=== PATIENT | female | born 1980 | race Caucasian/White ===

== ENCOUNTER 2016-03-29 13:13 | Inpatient (IN) | payer BC ==
[~2016-03-29] VITALS: Ht 166.4 cm; Wt 73.5 kg
[2016-03-29] VITALS (8 sets, daily range): BP systolic 99–127; RESP 20; TEMP 98.3; Ht 166.4 cm; Wt 73.5 kg
[2016-03-29] MEDS ORDERED: LACT RINGERS 1,000 ML IV SCH (13:50)
[2016-03-29] MEDS ORDERED: ONDANSETRON 4 MG VIAL IV PRN (13:50)
[2016-03-29] MEDS ORDERED: ACETAMINOPHEN 325 MG TAB PO PRN (13:50)
[2016-03-29] MEDS ORDERED: FAMOTIDINE 20 MG TAB PO PRN (13:50)
[2016-03-29] MEDS ORDERED: METOCLOPRAMIDE 10 MG/2 ML VIAL IV PUSH PRN (13:50)
[2016-03-29] MEDS ORDERED: FAMOTIDINE 20 MG INJ IV PRN (13:50)
[2016-03-29] MEDS ORDERED: PROMETHAZINE 25 MG/ML VIAL IV PRN (13:50)
[2016-03-29] MEDS ORDERED: LIDOCAINE 1% 30 ML PF INFILTRATE ONE (13:50)
[2016-03-29] MEDS ORDERED: ALU/MAG/SIM 30 ML UDC PO PRN (13:50)
[2016-03-29] MEDS ORDERED: TERBUTALINE 1 MG/ML VIAL SUBQ PRN (13:50)
[2016-03-29] MEDS ORDERED: CEFAZOLIN (LD/OB) 100 ML IV PRN (13:50)
[2016-03-29] MEDS ORDERED: LIDOCAINE 1% BUFFERED 1 ML SYR INTRADERM PRN (13:50)
[2016-03-29] MEDS ORDERED: ROPIV/FENT 0.2%-2MCG/ML 100 ML EPIDURAL ONE (16:57)
[2016-03-29] MEDS ORDERED: FENTANYL 100 MCG/2 ML AMP ONE (16:58)
[2016-03-29] MEDS ORDERED: SODIUM CHLORIDE 0.9% 500 ML IV PRN (17:30)
[2016-03-29] MEDS ORDERED: FENTANYL 100 MCG/2 ML AMP EPIDURAL ONE (17:30)
[2016-03-29] MEDS ORDERED: LACT RINGERS 500 ML IV ONE (17:30)
[2016-03-29] MEDS ORDERED: LACT RINGERS 500 ML IV PRN (17:30)
[2016-03-29] MEDS ORDERED: ROPIV/FENT 0.2%-2MCG/ML 100 ML EPIDURAL SCH (17:30)
[2016-03-29] MEDS ORDERED: OXYTOCIN 15 UNITS/250 ML NS 15 UNITS in PART FILL PIGGYBACK 1 EA IV SCH (18:50)
[2016-03-29] MEDS ORDERED: **ONLY ANESTEHSIA MAY ORDER OPIATES WHILE ON EPIDURAL XX SCH (20:00)
[2016-03-29] MEDS: OXYTOCIN 15 UNITS/250 ML NS 250 ML IV SCH ×2 (20:28→20:38)
[2016-03-29] MEDS ORDERED: MAG HYDROX 30 ML UDC PO PRN (21:35)
[2016-03-29] MEDS ORDERED: MEASLES,MUMPS,RUBELLA VAC SUBQ.VACC ONE (21:35)
[2016-03-29] MEDS ORDERED: DERMOPLAST SPRAY TOPICAL PRN (21:35)
[2016-03-29] MEDS ORDERED: OXYTOCIN 15 UNITS/250 ML NS 250 ML IV SCH (21:35)
[2016-03-29] MEDS ORDERED: ZOLPIDEM 5 MG TAB PO PRN (21:35)
[2016-03-29] MEDS ORDERED: TDaP 0.5 ML VIAL IM.VACC ONE (21:35)
[2016-03-29] MEDS ORDERED: ASTRINGENT MED PADS 40'S TOPICAL PRN (21:35)
[2016-03-29] MEDS: Ibuprofen 600 MG TAB PO PRN (22:23)
[2016-03-30] MEDS ORDERED: FAMOTIDINE 20 MG TAB ONE ×2 (00:16→13:31)
[2016-03-30 02:10] VITALS: BP_SYST 114; RESP 16; TEMP 97.5
[2016-03-30 06:15] VITALS: BP_SYST 95; RESP 20; TEMP 97.5
[2016-03-30] MEDS: Ibuprofen 600 MG TAB PO PRN ×2 (08:20→13:34)
[2016-03-30] MEDS: DOCUSATE SOD 100 MG CAP PO SCH (08:20)
[2016-03-30 13:12] VITALS: BP_SYST 109; TEMP 98.3
[2016-03-30] MEDS: FAMOTIDINE 20 MG TAB PO SCH ×2 (13:35→21:00)
[2016-03-30 18:12] VITALS: BP_SYST 105; RESP 16; TEMP 97.6
[2016-03-31 05:00] VITALS: BP_SYST 83; RESP 16; TEMP 98.3
[2016-03-31] MEDS: DOCUSATE SOD 100 MG CAP PO SCH (08:18)
[2016-03-31] MEDS: Ibuprofen 600 MG TAB PO PRN (08:18)
[2016-03-31 09:26] VITALS: BP_SYST 108; RESP 14; TEMP 97.9
[2016-03-31 10:37] VITALS: BP_SYST 108; RESP 14; TEMP 97.9
== END 2016-03-31 12:51 | disposition home or self-care (01) | DRG 775 ==
LOC: LDOP 13:13 → LD 15:00 → OB 23:50
PROVIDERS: ADMIT Obstetrics & Gynecology; ATTEND Obstetrics & Gynecology
PROC: 10E0XZZ Delivery of Products of Conception, External Approach (ICD-10-PCS; principal; 2016-03-29)
PROC: 0KQM0ZZ Repair Perineum Muscle, Open Approach (ICD-10-PCS; 2016-03-29)
PROC: 10907ZC Drainage of Amniotic Fluid, Therapeutic from Products of Conception, Via Natural or Artificial Opening (ICD-10-PCS; 2016-03-29)
DX: O70.1 Second degree perineal laceration during delivery (principal); Z37.0 Single live birth; O69.81X0 Labor and delivery complicated by cord around neck, without compression, not applicable or unspecified; Z3A.39 39 weeks gestation of pregnancy
CPT/HCPCS: 82803; 85014; 85018; 85025